=== PATIENT | female | born 1935 | race Caucasian/White ===

== ENCOUNTER 2017-12-12 07:26 | Inpatient (IN) | payer OTHER ==
[~2017-12-12] VITALS: Ht 167.6 cm; Wt 83.8 kg
[2017-12-12] VITALS (42 sets, daily range): BP systolic 83–141; BP diastolic 41–90
--- NOTE | ~2017-12-12 | HC ---
[facility] [place] [place] [address] CONSULTATION Name: MYRONMOISESPEREZRENARD E Room #: 242-P ADM IN M.R.#: [id number] Admission: 12/12/17 Attend Phys: Cheo Reid Discharge: Date of : 35 Report #: [id number] THIS REPORT FOR: //name// CC: FAM unknown Cheo Reid REASON FOR CONSULTATION: I was asked to evaluate concerning pneumonia. HISTORY OF PRESENT ILLNESS: The patient is an year-old with underlying dementia, peripheral vascular disease, atrial fibrillation and diabetes, who had been at home with her . Underlying dementia requires high level of assistance. She was actually on hospice care per her home health agency. She has been dealing with pneumonia and been hospitalized twice in the last month, first at [facility], then at [facility]. She was discharged last week. She completed a course of antibiotics prior to her dismissal. She has been dealing with a left heel wound, which had been making some progress. Yesterday, while up to the bathroom, she completed her movement and was sitting back in bed with her in attendance, developing a chest pain. She has had a cardiopulmonary arrest. CPR was initiated by her . EMS was dispatched and approximately 10 minutes after the event, they were there assisting him in her resuscitative measures. She was brought into the Emergency Room, she was intubated, now on the ventilator, FiO2 of 40%. She was noted to have a left pleural effusion, which was tapped. I am awaiting the analysis of this fluid. X-ray improved following her thoracentesis. She is placed on broad antibiotic coverage. I do not have previous microbiology reports from her prior hospital stay. Nursing reports minimal tracheal secretions. She is on ice protocol and will be rewarmed later on today. She has had no neurologic activity noted on examination by the nursing staff. Prior to her admission, there is no nausea, vomiting, diarrhea, dysuria or frequency noted. The patient was able to ambulate with assistance and feed herself otherwise required further care. ALLERGIES: None known. MEDICATIONS: As noted on her MAR including vancomycin and Zosyn. She remains on low dose Levophed and amio drip. She is on propofol at this time. REVIEW OF SYSTEMS: Otherwise, notes indwelling Yoder catheter. Wound to her left heel, OG tube, endotracheal tube. Left IJ catheter. PAST MEDICAL HISTORY: Hypertension, hyperlipidemia, diabetes, atrial fibrillation, peripheral vascular disease, bleeding ulcers, hysterectomy and tonsillectomy. Total shoulder on the left and wrist surgery. Dementia, which has progressed over the last year. FAMILY HISTORY: [place] [address] CONSULTATION Name: RENARD ANDERSON Room #: 242-P [facility] IN M.R.#: [id number] Admission: 12/12/17 Attend Phys: Cheo Reid Discharge: Date of : 35 Report #: [id number] SOCIAL HISTORY: Nonsmoker, no significant alcohol intake. Resides with her . PHYSICAL EXAMINATION: VITAL SIGNS: Afebrile, blood pressure 119/71, heart rate 79, irregular. On 40% FiO2 orally intubated. SKIN: With full thickness wound to the lateral left heel. No surrounding cellulitis. No purulent drainage. There was some granulation tissue at the base. HEENT: Unremarkable. The patient was unresponsive to painful stimulus. Pupils were 2 mm, nonreactive. No corneal reflex. LUNGS: Clear anteriorly. HEART: Regular, without murmur. ABDOMEN: Soft and nontender. EXTREMITIES: Otherwise, unremarkable other than previous amputation of right first toe. LABORATORY STUDIES: Hemoglobin 9.5, WBC 17.9, platelet count 185,000. Differential remarkable for 91% neutrophils, 3% lymphocytes, 4% monocytes. INR 1.4, sodium 136, potassium 3.1, bicarbonate of 15, creatinine 1.5. CPK-MB 12. Blood cultures negative. Sputum culture pending. Pleural fluid, Gram stain, no organisms with neutrophils present. Lactate 10.6. Echocardiogram, EF of 55%, left and right atrium, dilated, moderate to severe tricuspid regurgitation, small amount of anterior pericardial fluid. Chest x-ray, improved basilar infiltrates. Not seen in the medial bases. IMPRESSION: An 82-year-old with out of hospital cardiac arrest with anoxic encephalopathy, acute renal insufficiency, lactic acidosis, non-ST elevation myocardial infarction, leukocytosis, basilar infiltrates with history of recent pneumonia. I am suspecting aspiration, healthcare-associated pneumonia here. Very concerned about the extent of her anoxic encephalopathy. I have discussed with family at the bedside. [place] here is very poor. RECOMMENDATIONS: We will continue IV antibiotic therapy for healthcare-associated infection. Await cultures of blood, sputum and left chest fluid. We will continue full support as the patient is rewarmed. I have called for outside records to review her microbiology reports. I have discussed with nursing at the bedside regarding her evaluation and approach to her treatment. <ELECTRONICALLY SIGNED> By: Uri Gallegos MD 12/14/17 0908 0941 1256 Uri Gallegos MD /nt
--- NOTE | ~2017-12-12 | PATH ---
[facility] [address] [place] [address] PATHOLOGY RPT PROCEDURE Name: RENARD ANDERSON Room #: 242-P ADM IN .R.#: [id number] Admission: 12/12/17 Date of : 35 Discharge: Report #: [id number] Path Case #: [id number] Note [facility] Accession Number: [id number] TESTS RESULT FLAG UNITS REF RANGE LAB Clinician Provided Cytology Information No. of containers..01 Other (Miscellaneous) Source: LEFT PLEURAL FLUID DIAGNOSIS: 02 LEFT PLEURAL FLUID NEGATIVE FOR MALIGNANT CELLS. REACTIVE MESOTHELIAL CELLS ARE PRESENT. THIS INTERPRETATION INCLUDES EVALUATION OF A CELL BLOCK. Signed out by: 02 Yessy Wade MD, Pathologist NPI- [id number] Performed by: 03 Nereyda Castro, [employer] Installer ([facility]) Gross description: 01 10 ML, DARK YELLOW, CLOUDY /LCS FLAG LEGEND: L-Low Normal,H-High Normal,LL-Alert Low,HH-Alert High <-Panic Low,>-Panic High,A-Abnormal,AA-Critical Abnormal Performed at: [address] [place] [address] Zachariah Keenan MD, [address] [address] Yessy Wade MD, [address] [address] Jim Juarez MD, Performed at: [address], [place], [place] [id number] MD Zachariah Keenan MD Phone: [phone]
--- NOTE | ~2017-12-12 | EKG ---
[place] [address] [facility] [place] [address] ELECTROCARDIOGRAM REPORT Name: RENARD ANDERSON Room #: 242-P [facility] IN M.R.#: [id number] Admission: 12/12/17 Attend Phys: Cheo Reid Discharge: Date of : 35 Report #: [id number] THIS REPORT FOR: //name// [facility] ED Test Date: 2017-12-12 Test Time: 08:02:50 Pat Name: RENARD AGRAWALPEREZ Department: Room: Gender: F Curriculum Facilitator: MECCA : 1935 Requested By: Zena Reeves Order Number: [id number] MD: Chris Holloway Measurements Intervals [place] Rate: 119 P: RI: QRS: 113 QRSD: 89 T: -58 QT: 348 QTc: 490 Interpretive Statements Atrial fibrillation Low voltage, extremity and precordial leads No previous ECG available for comparison Electronically Signed On 12-12-2017 16:33:27 CDT by Chris Holloway [email or web address] <ELECTRONICALLY SIGNED> By: Chris Holloway MD 12/12/17 1633 0802 1 Chris Holloway MD /AVILA
--- NOTE | ~2017-12-12 | EKG ---
[place] [address] [facility] [address] [place] [address] ELECTROCARDIOGRAM REPORT Name: RENARD ANDERSON Room #: 242-P ADM IN M.R.#: [id number] Admission: 12/12/17 Attend Phys: Cheo Reid Discharge: Date of : 35 Report #: [id number] THIS REPORT FOR: //name// [facility] ED Test Date: 2017-12-12 Test Time: 07:32:39 Pat Name: RENARD AGRAWALPEREZ Department: Room: Gender: F [employer]: : 1935 Requested By: Zena Reeves Order Number: [id number] MD: Chris Holloway Measurements Intervals [place] Rate: 135 P: AR: QRS: 142 QRSD: 110 T: -54 QT: 324 QTc: 486 Interpretive Statements Atrial fibrillation Low voltage, extremity and precordial leads Consider RVH w/ secondary repol abnormality ST depression, probably rate related Minimal ST elevation, inferior leads No previous ECG available for comparison Electronically Signed On 12-12-2017 16:33:00 CDT by Chris Holloway [email or web address] <ELECTRONICALLY SIGNED> By: Chris Holloway MD 12/12/17 1633 0732 0732 Chris Holloway MD /EPI
--- NOTE | ~2017-12-12 | 2DMMODE ---
[facility] [place] [place] [address] 2 D/M-MODE ECHOCARDIOGRAM Name: TANJARENARD TODD Addi Room #: 242-P ADM IN M.R.#: [id number] Admission: 12/12/17 Attend Phys: Cheo Arevalo Discharge: Date of : 35 Date of Service: 12/12/17 1011 Report #: [id number] THIS REPORT FOR: //name// APPROVED REPORT Study performed: 12/12/2017 09:21:46 EXAM: Comprehensive 2D, Doppler, and color-flow Echocardiogram Patient Location: ICU Room #: [facility] Status: stat BSA: 1.92 HR: 104 bpm BP: 113/75 mmHg Other Information Study Quality: Fair/not all measurements obtainable. Technically limited study due to STAT echo in ICU patient of vent. Limited mobility, body habitus, lung artifact. Indications Status post cardiac arrest. Atrial fib. Hx: HTN, HLP, DM, PVD. 2D Dimensions LVEF(%): 50.99 (>50%) IVSd: 9.05 (7-11mm) LVOT Diam: 17.85 (18-24mm) LVDd: 38.17 mm PWd: 9.05 (7-11mm) Ascending Ao: 31.41 (22-36mm) LVDs: 28.43 (25-40mm) Aortic Root: 30.51 mm Overton's LVEF: 50.99 % Aortic Valve AoV Peak Tom.: 1.28 m/s AO Peak Gr.: 6.57 mmHg Mitral Valve MV Decel. Time: 184.47 ms MV E Max Tom.: 1.11 m/s Pulmonary Valve PV Peak Tom.: 0.82 m/s PV Peak Gr.: 2.68 mmHg Tricuspid Valve TR Peak Tom.: 3.47 m/s RAP Estimate: 15.00 mmHg [facility] [place] [address] 2 D/M-MODE ECHOCARDIOGRAM Name: RENARD ANDERSON Room #: 242-P [facility] IN ..#: [id number] Admission: 12/12/17 Attend Phys: Cheo Arevalo Discharge: Date of : 35 Date of Service: 12/12/17 1011 Report #: [id number] TR Peak Gr.: 48.00 mmHg PA Pressure: 63.00 mmHg Left Ventricle The left ventricle is normal size. There is normal left ventricular wall thickness. Left ventricular systolic function is normal. LVEF is 50-55%. This study is not technically sufficient to allow evaluation of the LV diastolic function. Right Ventricle Right ventricle is not well visualized but appears grossly normal in size. Function appears low normal. Atria Left atrium is dilated. Right atrium is dilated. Aortic Valve The Aortic valve is sclerotic. No aortic regurgitation is present. There is no aortic valvular stenosis. Mitral Valve Mitral valve leaflets are mildly thickened. Mild mitral annular calcification. Trace to mild mitral regurgitation. Tricuspid Valve The tricuspid valve is normal in structure. Moderate to severe tricuspid regurgitation. Estimated PAP is 60-65mmHg. Pulmonic Valve The pulmonary valve is normal in structure. Trace pulmonic regurgitation. Great Vessels The aortic root is normal in size. The ascending aorta is normal in size. IVC is dilated and collapses <50% with inspiration. Pericardium Small anterior pericardial fluid was noted. <Conclusion> The left ventricle is normal size. Left ventricular systolic function is normal. LVEF is 50-55%. This study is not technically sufficient to allow evaluation of the LV diastolic function. [facility] [address] [place] [address] 2 D/M-MODE ECHOCARDIOGRAM Name: TANJARENARD TODD Room #: 242-P [facility] IN ..#: [id number] Admission: 12/12/17 Attend Phys: Cheo Arevalo Discharge: Date of : 35 Date of Service: 12/12/17 1011 Report #: [id number] Right ventricle is not well visualized but appears grossly normal in size. Function appears low normal. Left atrium is dilated. Right atrium is dilated. The Aortic valve is sclerotic. There is no aortic valvular stenosis. Trace to mild mitral regurgitation. Moderate to severe tricuspid regurgitation. Estimated PAP is 60-65mmHg. The aortic root is normal in size. Small anterior pericardial fluid was noted. <ELECTRONICALLY SIGNED> By: Gianni Childers MD, FACC 12/12/17 1011 1011 1011 Gianni Childers MD, FACC /INF
--- NOTE | ~2017-12-12 | EEG ---
[facility] [place] [address] ELECTROENCEPHALOGRAM Name: RENARD ANDERSON Room #: 242-P [facility] IN M.R.#: [id number] Admission: 12/12/17 Attend Phys: Cheo Kang Discharge: Date of : 35 Report #: [id number] THIS REPORT FOR: //name// CC: FAM unknown Cheo Reid DATE OF SERVICE: 12/14/2017 This patient is being evaluated for the possibility of hypoxic encephalopathy. EEG was done by placing the electrode by standard 10-20 system of electrode placement. Both referential and sequential montages were used for recording. The whole EEG is masked by a lot of muscle and electronic artifact. Paralyzing agents could not be given because the patient's blood pressure was unstable. Photic stimulation was unremarkable. IMPRESSION: This patient's EEG is masked by a lot of muscle and electronic artifact. No definite impression can be made on this patient's EEG at this state. It does not appear to be showing any epileptiform activity. Paralyzing agent could not be given because the patient's blood pressure was unstable. Once the patient's blood pressure stabilizes, then the repeat EEG can be done by giving the patient some paralyzing agents. Thank you very much for this referral. By: 1133 1224 Pascual Pennington MD /nt
--- NOTE | ~2017-12-12 | HC ---
[facility] [place] [address] CONSULTATION Name: TANJAPEREZRENARD Addi Room #: 242-P [facility] IN M.R.#: [id number] Admission: 12/12/17 Attend Phys: Cheo Reid Discharge: 12/14/17 Date of : 35 Report #: [id number] THIS REPORT FOR: //name// CC: FAM unknown Cheo Reid DATE OF SERVICE: 12/13/2017 CHIEF COMPLAINT: Lower extremity ulcerations. HISTORY OF PRESENT ILLNESS: This is an 82-year-old female patient who is in the intensive care unit on a ventilator and minimally responsive following out of hospital cardiac arrest. The patient had been recently hospitalized at [facility] for pneumonia. She has a history of lower extremity peripheral arterial disease status post intervention and atrial fibrillation, hypotension and diabetes mellitus. The patient is unable to provide any information and is not responsive at this time. PAST MEDICAL HISTORY: Positive for recent pneumonia, atrial fibrillation, on Eliquis, encephalopathy, hypotension, peripheral arterial disease, status post right lower extremity stent placement at [facility]. CURRENT MEDICATIONS: Include acetaminophen, amiodarone, chlorhexidine, artificial tears, famotidine, glucagon, insulin, levetiracetam, Mag-Ox, magnesium sulfate, morphine, Nitrostat, norepinephrine, ondansetron, Zosyn, potassium, propofol, vancomycin. ALLERGIES: No known drug allergies. SOCIAL HISTORY: Unknown. FAMILY HISTORY: None known. REVIEW OF SYSTEMS: Unobtainable due to the patient's unresponsive state. PHYSICAL EXAMINATION: VITAL SIGNS: Include pulse rate 72, respiratory rate of 23, blood pressure of 96/45. GENERAL: This is a chronically ill-appearing female patient who is unresponsive. HEENT: Head normocephalic. Nose is clear. Throat demonstrates that she is orotracheally intubated. NECK: Without JVD. LUNGS: Diminished. HEART: Irregular. ABDOMEN: Soft, nontender. [facility] [address] [place] [address] CONSULTATION Name: TANJAPEREZRENARD Fontana Room #: 242-P [facility] IN [facility].#: [id number] Admission: 12/12/17 Attend Phys: Cheo Reid Discharge: 12/14/17 Date of : 35 Report #: [id number] EXTREMITIES: Examination of the lower extremities demonstrates the skin is slightly cool. She has an ulceration on her left lateral heel, is likely arterial in origin. It is a mix of granulation and fibrin. She also has a small ulceration to the lateral aspect of the right lower leg near the proximal fibular head. LABORATORY DATA: Includes white blood cell count 18,000; hemoglobin 9.3; hematocrit of 30.8. Sodium 133, potassium 4.5, BUN 26, creatinine 1.4, glucose 120. CLINICAL IMPRESSION: 1. Arterial ulceration, left lateral ankle. 2. Possible pressure versus friction base injury to the right lateral lower leg. 3. Status post out of hospital cardiac arrest. 4. Respiratory failure requiring mechanical ventilation. RECOMMENDATIONS: At this point in time, recommend topical bordered foam dressings to be changed Monday, Monday, Monday and as needed to the ulceration of the lower extremities. Prevalon boots for pressure prophylaxis, low air loss mattress, q.2 hours turning and positioning. I appreciate being asked to see her in consultation. <ELECTRONICALLY SIGNED> By: Richie Partida MD 12/15/17 1130 1637 0148 Richie Partida MD /nt
--- NOTE | ~2017-12-12 | HC ---
[facility] [place] [address] CONSULTATION Name: TANJAPEREZRENARD Room #: 242-P ADM IN M.R.#: [id number] Admission: 12/12/17 Attend Phys: Cheo Reid Discharge: Date of : 35 Report #: [id number] THIS REPORT FOR: //name// CC: FAM unknown Cheo Reid DATE OF SERVICE: 12/12/2017 PULMONARY CONSULTATION REFERRING PHYSICIAN: Dr. Zena Reeves. HISTORY OF PRESENT ILLNESS: The patient is an 81-year-old white female who presented to the Emergency Room following cardiac arrest. A pulmonary consultation was requested. The patient was apparently recently hospitalized at [facility] for pneumonia. She has multiple medical problems including peripheral artery disease with left lower extremity stent, atrial fibrillation on Eliquis, hypotension, diabetes mellitus. She had an apparent witnessed cardiac arrest at home. When EMS arrived, she was found to be in nonshockable rhythm. She was given epinephrine. The patient was found to be asystolic. Following epinephrine, the monitor showed atrial fibrillation with nonspecific ST changes. The patient was transferred to the Emergency Room. In the ER, she was intubated. She was found to be hypotensive. She is presently on hypothermia protocol. Dr. Reeves has called for pulmonary consultation. At the time of discussion, ABG was not identified. Arterial blood gas earlier showed a pH of 7.12, pCO2 of 39, pO2 of 101 on FiO2 100%, bicarbonate was 17. Sodium 138, potassium 3.2, chloride 102, creatinine 1.9, BUN 29. It does not appear that the patient is receiving bicarbonate as the result of the ABG has not been known prior to transfer to the ICU. In the interim, she has an intraosseous placement on the right lower extremity. Currently, she is on hypothermia protocol. Hemodynamically stable. According to nursing, there was some discussion regarding hospice care. Apparently, hospice was ordered as an outpatient for the patient. PAST MEDICAL HISTORY: As mentioned above. This also includes a history of peptic ulcer disease. PAST SURGICAL HISTORY: Hysterectomy, tonsillectomy, prior shoulder surgery, [facility] [address] [place] [address] CONSULTATION Name: RENARD ANDERSON Room #: 242-P [facility] IN ..#: [id number] Admission: 12/12/17 Attend Phys: Cheo Reid Discharge: Date of : 35 Report #: [id number] wrist surgery. ALLERGIES: Unknown. FAMILY HISTORY: Unknown. SOCIAL HISTORY: Unknown. REVIEW OF SYSTEMS: Deferred as the patient is intubated. PHYSICAL EXAMINATION: GENERAL: She is sedated. VITAL SIGNS: Blood pressure 110/75 mmHg, saturation is 100%, respiratory rate is 20, pulse is 100, temperature is pending. HEENT: Normocephalic, atraumatic. She is orally intubated. NECK: Supple, no lymphadenopathy or thyromegaly. CHEST: Breath sounds are relatively clear without rales or wheezes. CARDIOVASCULAR: Difficult exam, but no obvious murmurs or gallop. Pulses are 2+/4+ bilaterally. BREASTS: Deferred. ABDOMEN: Soft, nontender, no masses felt. GENITOURINARY: Deferred. RECTAL: Deferred. EXTREMITIES: No cyanosis, clubbing, edema. There is an amputated right toe. There is an intraosseous line in the right tibia. LABORATORY DATA: Portable chest x-ray on admission shows complete opacification of the left lung, right lung field is clear. A followup chest x-ray shows complete reexpansion and aeration of the left lung. ET tube is approximately 2 cm above the tapan. Central line is in the left internal jugular tracking into what appears to be azygos vein. KUB shows NG tube in the stomach, left lower lobe atelectasis noted. Echocardiogram performed earlier today shows ejection fraction of 50-55%, LV diastolic dysfunction, dilated left atrium, dilated right atrium. No significant valvular heart disease, pulmonary pressure measuring 60-65 mmHg. EKG shows low voltages, right RVH, mild ST depression, ST elevation, which appeared to have resolved on a followup EKG. BNP is 7100. Arterial blood gas revealed pH 7.12, pCO2 of 39, pO2 of 100 on FiO2 of 100%. Electrolytes as mentioned above. Sodium 138, potassium 3.2, chloride 102, CO2 of 17, BUN is 26, creatinine 1.9, hemoglobin 9.1. WBC 10,900 without significant bandemia. Platelets normal. Albumin 2.6. IMPRESSION: 1. Apparent witnessed cardiac arrest in this 81-year-old white female. She was found to be in asystole. Eventually, she was in atrial fibrillation following epinephrine. She is now intubated. Subtle EKG abnormalities noted as mentioned above. Cardiology has been consulted. She has risk factors for heart disease [address] [address] CONSULTATION Name: RENARD ANDERSON Room #: 242-P ADM IN M.R.#: [id number] Admission: 12/12/17 Attend Phys: Cheo Reid Discharge: Date of : 35 Report #: [id number] including peripheral artery disease. 2. Recent pneumonia with complete opacification of the left lung, now with reexpansion and aeration following intubation, may be related to mucus plugging. Cannot rule out recurrent infection. 3. Profound acidemia, metabolic with acute kidney injury related to cardiac arrest. 4. Atrial fibrillation, apparently chronic, had been on Eliquis. 5. Encephalopathy, due to above. 6. Hypotension due to above, on vasopressors. 7. Peripheral artery disease, status post recent right lower extremity stent placement at [facility], engraver copperplate was Dr. Garcia. 8. History of peptic ulcer disease resulting in anemia. RECOMMENDATION: We will continue mechanical ventilation, we note FiO2 for saturation 90%, we will obtain sputum cultures including blood and urine. We will continue broad spectrum antibiotics. In regards to pulmonary hypertension, may be related to her respiratory failure and recent pneumonia. Will need followup echocardiogram in the near future when she is stabilized. Agree with hypothermia protocol, plans for possible cardiac catheterization noted per cardiology. May need to discuss with family regarding aggressive nature of therapy as they had explored hospice care most recently. Thank you for this consultation. Critical care time 1 hour. <ELECTRONICALLY SIGNED> By: Rafa Thomas MD 12/13/17 1815 1136 0233 Rafa Thomas MD /nt
[2017-12-12 07:58] LABS: HEMATOCRIT 31.9 % (37.0-47.0); HEMOGLOBIN 9.1 gm/dL (12.0-15.0); MCH 22.7 pg (26.0-34.0); MCHC 28.4 g/dL (28.0-37.0); PLATELET COUNT 202 thou/uL (150-400); RBC 3.99 mil/uL (4.20-5.00); WBC 10.8 thou/uL (4.0-11.0)
[2017-12-12 08:07] LABS: ANION GAP 19 mmol/L (7-16); BUN 26 mg/dL (7-18); CALCIUM 8.1 mg/dL (8.5-10.1); CHLORIDE 102 mmol/L (98-107); CO2 17 mmol/L (21-32); CREATININE 1.9 mg/dL (0.6-1.0); GLUCOSE 484 mg/dL (74-106); POTASSIUM 3.2 mmol/L (3.5-5.1); SODIUM 138 mmol/L (136-145)
[2017-12-12 08:13] LABS: ALBUMIN 2.6 g/dL (3.4-5.0); APTT 24.8 Seconds (24.5-32.8); DIRECT BILIRUBIN 0.4 mg/dL (<0.1-0.3); INR 1.3; PROTIME 12.4 Seconds (9.3-11.4); TOTAL BILIRUBIN 0.6 mg/dL (<0.1-1.0); TOTAL PROTEIN 5.6 g/dL (6.4-8.2)
[2017-12-12 08:16] LABS: TROPONIN-I < 0.04 ng/mL (<0.06)
[2017-12-12 08:35] LABS: ABSOLUTE NEUTROPHILS 6.8 thou/uL (1.4-8.2); ANISOCYTOSIS 1+; HYPOCHROMASIA 2+; METAMYELOCYTES 2 %; NUCLEATED RBCS 3 /100WBC; OVALOCYTES FEW
[2017-12-12 08:36] LABS: MICROCYTES 1+
[2017-12-12 09:51] LABS: BE(vivo) -15.5 mmol/L (-2 to +3); HCO3 12.8 mmol/L (22.0-26.0); PCO2 39.5 mmHg (35.0-45.0); PO2 101.1 mmHg (80.0-100.0); sO2 95.6 % (92.0-98.0)
[2017-12-12 09:53] LABS: pH 7.128 (7.360-7.450)
[2017-12-12 09:55] LABS: D-DIMER 5.01 ug/mLFEU (0.19-0.50); FIBRINOGEN 236.9 mg/dL (210-360)
[2017-12-12 15:15] LABS: CALCIUM 8.2 mg/dL (8.5-10.1); PHOSPHORUS 4.2 mg/dL (2.5-4.9)
[2017-12-12 15:23] LABS: ANION GAP 23 mmol/L (7-16); BUN 28 mg/dL (7-18); CALCIUM 8.4 mg/dL (8.5-10.1); CHLORIDE 101 mmol/L (98-107); CO2 12 mmol/L (21-32); GLUCOSE 444 mg/dL (74-106); POTASSIUM 3.6 mmol/L (3.5-5.1); SODIUM 136 mmol/L (136-145); TROPONIN-I < 0.04 ng/mL (<0.06)
[2017-12-12] MEDS ORDERED: ELIQUIS2.5 MG PO (15:28)
[2017-12-12] MEDS ORDERED: TEFLARO 600 MG600 MG IV (15:28)
[2017-12-12] MEDS ORDERED: PACERONE 200 M200 M1 PO (15:28)
[2017-12-12] MEDS ORDERED: ARICEPT 5 MG TAB5 MG PO (15:29)
[2017-12-12] MEDS ORDERED: ZETIA10 MG PO (15:29)
[2017-12-12] MEDS ORDERED: TRESIBA FL100 UNIT/1 SUBQ (15:30)
[2017-12-12] MEDS ORDERED: NAMENDA 10 MG T10 MG PO (15:31)
[2017-12-12] MEDS ORDERED: HUMALOG100 UNIT/2 SUBQ (15:31)
[2017-12-12] MEDS ORDERED: SYNTHROID75 MCG PO (15:31)
[2017-12-12] MEDS ORDERED: NAMENDA XR28 MG PO (15:32)
[2017-12-12] MEDS ORDERED: MIDODRINE HCL 55 M1 PO (15:32)
[2017-12-12 15:53] LABS: BF NUCLEATED CELLS 221; BF RBC 5377
[2017-12-12 15:58] LABS: CLARITY CLOUDY; COLOR ORANGE; SOURCE PLEURAL; TOTAL VOLUME 60 mL
[2017-12-12 16:52] LABS: BF MACROPHAGE 24; BF NEUTROPHILS 12
[2017-12-12 20:32] LABS: ABSOLUTE NEUTROPHILS 18.3 thou/uL (1.4-8.2); BASOPHILS 0.5 % (0.0-2.0); HEMATOCRIT 32.8 % (37.0-47.0); HEMOGLOBIN 9.5 gm/dL (12.0-15.0); LYMPHOCYTES 3.3 % (24.0-44.0); MCH 21.8 pg (26.0-34.0); MCV 75.3 fL (80.0-100.0); MONOCYTES 3.4 % (1.0-8.0); PLATELET COUNT 239 thou/uL (150-400); POLYS 92.8 % (36.0-66.0); RBC 4.35 mil/uL (4.20-5.00); RDW 17.3 % (10.5-14.5); WBC 19.7 thou/uL (4.0-11.0)
[2017-12-12 20:44] LABS: INR 1.4; PROTIME 14.4 Seconds (9.3-11.4)
[2017-12-12 20:45] LABS: MAGNESIUM 1.9 mg/dL (1.8-2.4)
[2017-12-12 20:49] LABS: CALCIUM 9.1 mg/dL (8.5-10.1); CREATININE 1.9 mg/dL (0.6-1.0); TROPONIN-I 0.1 ng/mL (<0.06)
[2017-12-12 20:59] LABS: ANISOCYTOSIS 1+; BURR CELLS 1+; HYPOCHROMASIA 1+
[2017-12-13] VITALS (70 sets, daily range): BP systolic 74–156; BP diastolic 42–90
[2017-12-13 02:22] LABS: HEMOGLOBIN 9.9 gm/dL (12.0-15.0); MCH 21.8 pg (26.0-34.0); MCV 75.4 fL (80.0-100.0); PLATELET COUNT 236 thou/uL (150-400); RBC 4.52 mil/uL (4.20-5.00); RDW 17.1 % (10.5-14.5); WBC 20.7 thou/uL (4.0-11.0)
[2017-12-13 02:41] LABS: APTT 29.3 Seconds (24.5-32.8); CALCIUM 8.6 mg/dL (8.5-10.1); CREATININE 1.5 mg/dL (0.6-1.0); INR 1.4; MAGNESIUM 1.5 mg/dL (1.8-2.4); PHOSPHORUS 2.2 mg/dL (2.5-4.9); POTASSIUM 3.3 mmol/L (3.5-5.1); PROTIME 14.2 Seconds (9.3-11.4); TROPONIN-I 0.12 ng/mL (<0.06)
[2017-12-13 03:05] LABS: HCO3 10.6 mmol/L (22.0-26.0); PCO2 21.8 mmHg (35.0-45.0); PO2 173.9 mmHg (80.0-100.0); pH 7.303 (7.360-7.450); sO2 99.1 % (92.0-98.0)
[2017-12-13 04:21] LABS: ABSOLUTE NEUTROPHILS 18.6 thou/uL (1.4-8.2)
[2017-12-13 04:22] LABS: ANISOCYTOSIS 1+; HYPOCHROMASIA 2+
[2017-12-13 06:24] LABS: ABSOLUTE NEUTROPHILS 15.9 thou/uL (1.4-8.2); BASOPHILS 0.2 % (0.0-2.0); HEMATOCRIT 30.9 % (37.0-47.0); HEMOGLOBIN 9.3 gm/dL (12.0-15.0); LYMPHOCYTES 4.9 % (24.0-44.0); MCH 22.1 pg (26.0-34.0); MCV 73.4 fL (80.0-100.0); MONOCYTES 6.5 % (1.0-8.0); PLATELET COUNT 183 thou/uL (150-400); POLYS 88.4 % (36.0-66.0); RBC 4.21 mil/uL (4.20-5.00); RDW 16.9 % (10.5-14.5)
[2017-12-13 06:42] LABS: APTT 30.1 Seconds (24.5-32.8); INR 1.4; PROTIME 14.7 Seconds (9.3-11.4)
[2017-12-13 06:44] LABS: CALCIUM 8.2 mg/dL (8.5-10.1); CREATININE 1.5 mg/dL (0.6-1.0); MAGNESIUM 1.5 mg/dL (1.8-2.4); PHOSPHORUS 2.3 mg/dL (2.5-4.9); POTASSIUM 3.1 mmol/L (3.5-5.1); TROPONIN-I 0.11 ng/mL (<0.06)
[2017-12-13 08:25] LABS: ABSOLUTE NEUTROPHILS 16.4 thou/uL (1.4-8.2); BASOPHILS 0.4 % (0.0-2.0); HEMATOCRIT 31.4 % (37.0-47.0); HEMOGLOBIN 9.5 gm/dL (12.0-15.0); LYMPHOCYTES 3.9 % (24.0-44.0); MCH 22.1 pg (26.0-34.0); MCHC 30.4 g/dL (28.0-37.0); MCV 72.8 fL (80.0-100.0); MONOCYTES 4.1 % (1.0-8.0); PLATELET COUNT 185 thou/uL (150-400); POLYS 91.6 % (36.0-66.0); RBC 4.32 mil/uL (4.20-5.00); WBC 17.9 thou/uL (4.0-11.0)
[2017-12-13 08:37] LABS: APTT 30.3 Seconds (24.5-32.8); INR 1.4; PROTIME 14.3 Seconds (9.3-11.4)
[2017-12-13 08:58] LABS: ANISOCYTOSIS 1+; MICROCYTES 1+
[2017-12-13 08:59] LABS: HYPOCHROMASIA 2+
[2017-12-13 11:11] LABS: BODY FLUID ALBUMIN 1.1 g/dL (()); BODY FLUID AMYLASE 4 U/L (()); BODY FLUID GLUCOSE 483 mg/dL (()); BODY FLUID LDH 128 IU/L (()); BODY FLUID PROTEIN 1.7 g/dL (())
[2017-12-13 14:09] LABS: HEMATOCRIT 30.8 % (37.0-47.0); HEMOGLOBIN 9.3 gm/dL (12.0-15.0); MCHC 30.1 g/dL (28.0-37.0); MCV 73.3 fL (80.0-100.0); PLATELET COUNT 163 thou/uL (150-400); RBC 4.21 mil/uL (4.20-5.00); RDW 17.1 % (10.5-14.5)
[2017-12-13 14:24] LABS: APTT 32.2 Seconds (24.5-32.8); INR 1.4; PROTIME 14.7 Seconds (9.3-11.4)
[2017-12-13 14:26] LABS: CALCIUM 8.5 mg/dL (8.5-10.1); CREATININE 1.4 mg/dL (0.6-1.0); MAGNESIUM 2.1 mg/dL (1.8-2.4); TROPONIN-I 0.1 ng/mL (<0.06)
[2017-12-13 14:27] LABS: POTASSIUM 4.5 mmol/L (3.5-5.1)
[2017-12-13 14:36] LABS: ABSOLUTE NEUTROPHILS 17.1 thou/uL (1.4-8.2)
[2017-12-13 14:37] LABS: ANISOCYTOSIS 1+; MICROCYTES 1+; POLYCHROMASIA SLIGHT
[2017-12-13 14:38] LABS: BURR CELLS 1+; HYPOCHROMASIA 2+; OVALOCYTES OCCASIONAL
[2017-12-14] VITALS (45 sets, daily range): BP systolic 89–146; BP diastolic 48–80
[2017-12-14 05:29] LABS: BE(vivo) -13.5 mmol/L (-2 to +3); HCO3 9.7 mmol/L (22.0-26.0); PCO2 17.5 mmHg (35.0-45.0); PO2 175.2 mmHg (80.0-100.0); sO2 99.2 % (92.0-98.0)
[2017-12-14 06:32] LABS: HEMATOCRIT 35.7 % (37.0-47.0); HEMOGLOBIN 10.6 gm/dL (12.0-15.0); MCH 21.9 pg (26.0-34.0); MCHC 29.6 g/dL (28.0-37.0); RBC 4.82 mil/uL (4.20-5.00); RDW 17.4 % (10.5-14.5)
[2017-12-14 06:34] LABS: WBC 33.8 thou/uL (4.0-11.0)
[2017-12-14 06:43] LABS: CALCIUM 8.4 mg/dL (8.5-10.1); CREATININE 1.9 mg/dL (0.6-1.0); POTASSIUM 5.4 mmol/L (3.5-5.1)
[2017-12-14 10:16] LABS: BE(vivo) -12.1 mmol/L (-2 to +3); HCO3 12.8 mmol/L (22.0-26.0); PCO2 26.5 mmHg (35.0-45.0); PO2 422.9 mmHg (80.0-100.0); sO2 99.8 % (92.0-98.0)
[2017-12-14 10:17] LABS: pH 7.303 (7.360-7.450)
[2017-12-16 08:03] LABS: SOURCE PLEURAL
== END 2017-12-14 17:00 | DRG 208 ==
LOC: ER 07:26 → EROBS 07:47 → ICU 07:47
PROVIDERS: Emergency Medicine; Hospitalist; Internal Medicine Pulmonary Disease
PROC: 0W9B3ZX Drainage of Left Pleural Cavity, Percutaneous Approach, Diagnostic (ICD-10-PCS; principal; 2017-12-12)
PROC: 02H633Z Insertion of Infusion Device into Right Atrium, Percutaneous Approach (ICD-10-PCS; principal; 2017-12-12)
PROC: 5A1935Z Respiratory Ventilation, Less than 24 Consecutive Hours (ICD-10-PCS; principal; 2017-12-12)
PROC: 4A133B1 Monitoring of Arterial Pressure, Peripheral, Percutaneous Approach (ICD-10-PCS; principal; 2017-12-12)
PROC: 4A133J1 Monitoring of Arterial Pulse, Peripheral, Percutaneous Approach (ICD-10-PCS; principal; 2017-12-12)
PROC: 03HY32Z Insertion of Monitoring Device into Upper Artery, Percutaneous Approach (ICD-10-PCS; principal; 2017-12-12)
PROC: 0BH17EZ Insertion of Endotracheal Airway into Trachea, Via Natural or Artificial Opening (ICD-10-PCS; principal; 2017-12-12)
DX: J96.90 Respiratory failure, unspecified, unspecified whether with hypoxia or hypercapnia (principal); J18.9 Pneumonia, unspecified organism; I21.4 Non-ST elevation (NSTEMI) myocardial infarction; N17.0 Acute kidney failure with tubular necrosis; J90 Pleural effusion, not elsewhere classified; E87.2 Acidosis; G93.1 Anoxic brain damage, not elsewhere classified; L97.329 Non-pressure chronic ulcer of left ankle with unspecified severity; I46.9 Cardiac arrest, cause unspecified; D64.9 Anemia, unspecified; E87.6 Hypokalemia; I95.9 Hypotension, unspecified; I10 Essential (primary) hypertension; E78.5 Hyperlipidemia, unspecified; E11.51 Type 2 diabetes mellitus with diabetic peripheral angiopathy without gangrene; F03.90 Unspecified dementia, unspecified severity, without behavioral disturbance, psychotic disturbance, mood disturbance, and anxiety; D72.829 Elevated white blood cell count, unspecified; E83.42 Hypomagnesemia; I48.2 Chronic atrial fibrillation; L89.90 Pressure ulcer of unspecified site, unspecified stage; Z87.11 Personal history of peptic ulcer disease; Z90.710 Acquired absence of both cervix and uterus; Z95.820 Peripheral vascular angioplasty status with implants and grafts; Z79.82 Long term (current) use of aspirin; Z79.899 Other long term (current) drug therapy; Z79.01 Long term (current) use of anticoagulants
CPT/HCPCS: 10078; 27000; 85010; 85030